=== PATIENT | male | born 1990 | race Caucasian/White ===

== ENCOUNTER → 2017-02-02 | Outpatient (CLI) | payer SELFPAY ==
--- NOTE | 2017-02-02 09:01 | DI ---
LEFT ANKLE, 02/02/2017 8:41 AM: Clinical History: Left ankle pain. Previous Exam: 02/29/2008. 3 views are submitted. There is no acute soft tissue, osseous, or joint abnormality. Since the last e xam, the patient has developed bony densities at the tip of the medial malleolus consistent with hete rotopic bone formation secondary to previous injury to the deltoid ligament. Reading: There is no acute abnormality noted. The patient has sustained a prior injury to the deltoid ligament
== END ==
LOC: ORTHO 08:48
PROVIDERS: ATTEND Orthopaedic Surgery
DX: M25.572 Pain in left ankle and joints of left foot (principal); S93.422A Sprain of deltoid ligament of left ankle, initial encounter; Z72.0 Tobacco use; W17.2XXA Fall into hole, initial encounter
CPT/HCPCS: 73610